=== PATIENT | female | born 1950 | race Caucasian/White ===

== ENCOUNTER 2025-02-24 19:55 | Observation (INO) | payer BC, MEDICARE ==
[~2025-02-24] VITALS: Ht 160 cm; Wt 95.1 kg
[2025-02-24 20:18] VITALS: BP 196/93; PULSE 73; RESP 16; TEMP 98.4; O2SAT 96
[2025-02-24 20:32] VITALS: BP 187/85; PULSE 73; RESP 16; TEMP 98.4; O2SAT 96
[2025-02-24 21:04] LABS: BASOPHIL # 0.1 10^3/uL (0.0-0.1); BASOPHIL % 0.7 % (0.1-1.2); EOSINOPHIL # 0.3 10^3/uL (0.0-0.2); EOSINOPHIL % 3.2 % (0.0-5.0); HEMATOCRIT(ML) 28.2 % (36.0-46.0); IG % 0.20 % (0.00-0.50); LYMPHOCYTES # 0.95 10^3/uL1 (1.0-4.8); LYMPHOCYTES % 11.9 % (24.0-44.0); MEAN CORP HGB 22.8 pg (26-34); MEAN CORP HGB CONCENTRATION 29.1 g/dL (33-36.5); MEAN CORP VOLUME 78.6 fL (78-100); MONOCYTES # 0.7 10^3/uL (0.3-0.8); MONOCYTES % 8.6 % (5.0-12.0); NEUTROPHIL # 6.0 10^3/uL (1.8-7.7); NEUTROPHILS % 75.4 % (41.0-85.0); RED BLOOD CELL 3.59 10^6/uL (4.00-5.20); RED CELL DISTRIBUTION WIDTH 15.8 % (11.5-14.5); WHITE BLOOD CELL 8.0 10^3/uL (4.5-11.0)
[2025-02-24 21:16] LABS: ALANINE AMINOTRANSFERASE(ML) 19.0 U/L (12-78); ALBUMIN(ML) 3.6 g/dL (3.4-5.0); CREATININE SERUM 0.63 mg/dL (0.59-1.40); EST GFR, NON-AA 92.4 (>/=60); TROPONIN I HIGH SENSITIVITY 24.0 ng/L (0-50)
[2025-02-24 21:30] VITALS: BP 174/95; PULSE 75; RESP 16; TEMP 98.4; O2SAT 96
[2025-02-24 22:23] VITALS: BP 186/97; PULSE 81; RESP 16; TEMP 98.4; O2SAT 96
[2025-02-24] MEDS ORDERED: KLOR-CON PO ONE (23:10)
[2025-02-24] MEDS: KLOR-CON PO STA (23:15)
[2025-02-24 23:16] VITALS: BP 187/97; PULSE 70; RESP 16; TEMP 98.4; O2SAT 96
[2025-02-24 23:49] VITALS: BP 204/92; PULSE 66; RESP 19; TEMP 96.9; O2SAT 98
[2025-02-25] MEDS ORDERED: MELATONIN PO PRN
[2025-02-25] MEDS ORDERED: ZOFRAN IV PRN
[2025-02-25] MEDS ORDERED: MILK OF MAGNESIA PO PRN
[2025-02-25] MEDS ORDERED: MYLANTA PO PRN
[2025-02-25] MEDS ORDERED: SIMETHICONE PO PRN
[2025-02-25] MEDS: LASIX IV STA (00:20)
[2025-02-25] MEDS ORDERED: [UNRECOGNIZED DRUG - CODE] PO (00:50)
[2025-02-25] MEDS ORDERED: AMLO2.5T5 PO (00:50)
[2025-02-25] MEDS ORDERED: CLOP75TA PO (00:50)
[2025-02-25] MEDS ORDERED: TRAZ-168 PO (00:50)
[2025-02-25] MEDS ORDERED: LEVE500T8 PO (00:50)
[2025-02-25] MEDS ORDERED: CETI10TA18 PO (00:50)
[2025-02-25] MEDS ORDERED: LISI10TA20 PO (00:50)
[2025-02-25] MEDS ORDERED: CARV12.52 PO (00:50)
[2025-02-25] MEDS ORDERED: METH-621 PO (00:50)
[2025-02-25] MEDS ORDERED: FURO20TA3 PO (00:50)
[2025-02-25] MEDS ORDERED: CELE100C PO (00:50)
[2025-02-25] MEDS ORDERED: ATOR20TA PO ×2 (00:50)
[2025-02-25] MEDS ORDERED: PANT40TA6 PO (00:50)
[2025-02-25] MEDS ORDERED: MONT-38 PO (00:50)
[2025-02-25] MEDS ORDERED: ALBU2.5V2 IH (01:03)
[2025-02-25] MEDS: ROBAXIN PO PRN (01:04)
[2025-02-25] MEDS: KLOR-CON PO ONE ×3 (03:32→11:46)
[2025-02-25 04:00] VITALS: BP 131/52; PULSE 66; RESP 18; TEMP 97.6; O2SAT 92
[2025-02-25 06:50] VITALS: BP 158/62; PULSE 67; RESP 17; TEMP 97.4; O2SAT 95
[2025-02-25] MEDS ORDERED: COZAAR ONE (09:08)
[2025-02-25] MEDS ORDERED: CHLORTHALIDONE ONE (09:08)
[2025-02-25] MEDS ORDERED: COREG ONE (09:08)
[2025-02-25] MEDS: PROTONIX PO SCH (09:12)
[2025-02-25] MEDS: COZAAR PO SCH (09:16)
[2025-02-25] MEDS: COREG PO SCH (09:17)
[2025-02-25] MEDS: PLAVIX PO SCH (09:17)
[2025-02-25] MEDS: CHLORTHALIDONE PO SCH (09:17)
[2025-02-25] MEDS: KEPPRA XR PO SCH (09:22)
[2025-02-25] MEDS ORDERED: KLOR-CON PO ONE (09:22)
[2025-02-25 10:20] LABS: CREATININE SERUM 0.61 mg/dL (0.59-1.40); EST GFR, NON-AA 95.9 (>/=60)
[2025-02-25 11:00] VITALS: BP 159/68; PULSE 69; RESP 18; TEMP 97.8; O2SAT 94
[2025-02-25] MEDS ORDERED: CHLO25TA PO (11:40)
[2025-02-25] MEDS ORDERED: LOSA-400 PO (11:40)
[2025-02-25] MEDS ORDERED: TYLENOL PO PRN ×3 (12:22)
[2025-02-25 13:42] VITALS: BP 159/68; PULSE 69; RESP 18; TEMP 97.8; O2SAT 94
[2025-02-25] MEDS ORDERED: SINGULAIR PO SCH (21:00)
[2025-02-25] MEDS ORDERED: LIPITOR PO SCH (21:00)
== END 2025-02-25 13:10 | disposition home or self-care (01) ==
LOC: ER 19:55 → OBS 22:51
PROVIDERS: ADMIT Internal Medicine; ATTEND Internal Medicine
DX: E87.6 Hypokalemia (principal); I16.0 Hypertensive urgency; E78.5 Hyperlipidemia, unspecified; I11.0 Hypertensive heart disease with heart failure; R00.2 Palpitations; I50.9 Heart failure, unspecified; I25.10 Atherosclerotic heart disease of native coronary artery without angina pectoris; R53.1 Weakness; R09.89 Other specified symptoms and signs involving the circulatory and respiratory systems; R53.83 Other fatigue; Z79.899 Other long term (current) drug therapy; Z95.5 Presence of coronary angioplasty implant and graft; Z98.890 Other specified postprocedural states
CPT/HCPCS: 99291; 71045; 80053; 85025; 36415 ×2; 84484; 83880; 83735; 93005; 96374; 80048; G0378 ×14; J3490 ×4; J1938